=== PATIENT | female | born 1965 | race Caucasian/White ===

== ENCOUNTER 2017-12-11 00:03 | Emergency (ER) | payer OTHER ==
[2017-12-11 00:29] VITALS: BP 139/84; PULSE 60; TEMP 98.1; BMI 36.8
--- NOTE | 2017-12-11 01:16 | PDOC ---
History of Present Illness - General Chief Complaint: Pain Stated Complaint: STOMACH PAIN Time Seen by Provider: 12/11/17 00:42 Past History - Past Medical History Allergies/Adverse Reactions: Allergies Allergy/AdvReac Type Severity Reaction Status Date / Time No Known Allergies Allergy Verified 12/11/17 00:30 COPD: No HTN: Yes Thyroid Disease: Yes - Suicide/Smoking/Psychosocial Hx Smoking History: Never smoked *Physical Exam - Vital Signs Last Vital Signs Temp Pulse Resp BP Pulse Ox 98.1 F 60 18 139/84 99 12/11/17 00:23 12/11/17 00:23 12/11/17 00:23 12/11/17 00:23 12/11/17 00:23 *DC/Admit/Observation/Transfer - Referrals Referrals: Gita Hankins MD [Primary Care Provider] - - Patient Instructions - Post Discharge Activity
--- NOTE | 2017-12-11 01:21 | PDOC ---
History of Present Illness - General Chief Complaint: Pain Stated Complaint: STOMACH PAIN Time Seen by Provider: 12/11/17 00:42 - History of Present Illness Initial Comments: 52 year old female with PMH of HTN, GERD, and HLD presenting with sudden onset diarrhea and stomach pain a few hours after eating pork and beans. States she had some pork, beans, and salad that she cooked herself and went to bed without issue. She woke up bout 4 hours later and had some crampy lower abdominal pain two episodes of diarrhea. Denies fevers, chills, nausea, vomiting, constipation , chest pain, headache, sob, or other symptoms. 12/11/17 04:49 Past History - Past Medical History Allergies/Adverse Reactions: Allergies Allergy/AdvReac Type Severity Reaction Status Date / Time No Known Allergies Allergy Verified 12/11/17 00:30 Home Medications: Ambulatory Orders Mag Hydrox/Al Hydrox/Simeth [Mylanta Suspension -] 30 ml PO Q6H PRN #1 bottle COPD: No HTN: Yes Thyroid Disease: Yes - Suicide/Smoking/Psychosocial Hx Smoking History: Never smoked Review of Systems - Review of Systems Constitutional: No: Chills, Diaphoresis, Fever, Loss of Appetite HEENTM: No: Blurred Vision, Tearing Respiratory: No: Cough, Orthopnea, Shortness of Breath Cardiac (ROS): No: Chest Pain, Edema, Irregular Heart Rate ABD/GI: Yes: Diarrhea. No: Nausea, Vomiting : No: Burning, Dysuria, Discharge Musculoskeletal: No: Back Pain, Joint Pain Integumentary: No: Lesions, Lumps, Pruritus Neurological: No: Headache, Numbness, Paresthesia Psychiatric: No: Anxiety, Depression Hematologic/Lymphatic: No: Anemia, Blood Clots, Easy Bleeding *Physical Exam - Vital Signs Last Vital Signs Temp Pulse Resp BP Pulse Ox 98.1 F 60 18 139/84 99 12/11/17 00:23 12/11/17 00:23 12/11/17 00:23 12/11/17 00:23 12/11/17 00:23 - Physical Exam General Appearance: Yes: Nourished, Appropriately Dressed. No: Apparent Distress HEENT: positive: EOMI, MURALI, Normal ENT Inspection, Normal Voice Neck: positive: Trachea midline, Normal Thyroid, Supple. negative: Tender, Rigid Respiratory/Chest: positive: Lungs Clear, Normal Breath Sounds. negative: Chest Tender, Respiratory Distress, Accessory Muscle Use Cardiovascular: positive: Regular Rhythm, Regular Rate Gastrointestinal/Abdominal: positive: Normal Bowel Sounds, Flat, Soft. negative : Tender Lymphatic: negative: Adenopathy, Tenderness Musculoskeletal: positive: Normal Inspection. negative: CVA Tenderness, Decreased Range of Motion Extremity: positive: Normal Capillary Refill, Normal Inspection, Normal Range of Motion. negative: Tender Integumentary: positive: Normal Color, Dry, Warm Neurologic: positive: Fully Oriented, Alert, Normal Mood/Affect, Normal Response , Motor Strength 10/13 ED Treatment Course - LABORATORY CBC & Chemistry Diagram: 12/11/17 01:53 12/11/17 01:53 Medical Decision Making - Medical Decision Making 52 year old with crampy lower abdominal pain and diarrhea after eating pork and salad. Unclear cause of her pain but it may have been food borne gastric irritation. Troponin was negative and her CK was slightly elevated to 698 which is consistent with her very poor fluid intake over the past couple of days. She feels improved after Pepcid and Maalox which corroborates gastric irritation 2/ 2 ingestion vs. GERD exacerbation. Will DC home with Maalox prescription and follow up instructions/ return precautions. 12/11/17 04:53 *DC/Admit/Observation/Transfer Diagnosis at time of Disposition: Abdominal pain Qualifiers: Abdominal location: left upper quadrant Qualified Code(s): R10.12 - Left upper quadrant pain - Discharge Dispostion Disposition: HOME Condition at time of disposition: Improved Decision to Admit order: No - Prescriptions Prescriptions: Mag Hydrox/Al Hydrox/Simeth [Mylanta Suspension -] 30 ml PO Q6H PRN #1 bottle PRN Reason: Nausea And/Or Vomiting - Referrals Referrals: Gita Hankins MD [Primary Care Provider] - - Patient Instructions Printed Discharge Instructions: DI for Abdominal Pain-Adult Additional Instructions: Solomon dolor abdominal probablemente se relacion con solomon reciente ingestin de cerdo y frijol. Por favor, asegrese de cocinar todas ashwini abhijeet a fondo. Por favor use Maalox y solomon medicacin anticida segn sea necesario para solomon dolor de estmago. Por favor, consulte a solomon mdico de atencin primaria cuando regrese. Por favor, regrese al Ed si tiene sntomas nuevos o que empeoran. Print Language: TURKMEN - Post Discharge Activity
--- NOTE | 2017-12-11 01:27 | PDOC ---
Attending Attestation - HPI HPI: 12/11/17 01:30 The patient is a 52 year old female, with a significant past medical history of GERD (omeprazole), hysterectomy, hypertension (taking losartan and Lasiks), hypothyroidism (synthroid), who presents to the emergency department with middle abdominal pain since about 11:30 PM. She states she ate fried pork and rice which she prepared at about 9PM. She states she developed the pain followed by chills and 2 episodes of loose stools. She denies blood in her stool. She states this feels unlike her GERD. She reports being seen for a routine visit on 12/[address] Calderon. The patient denies chest pain, shortness of breath, headache and dizziness. The patient denies fever, chills, nausea, vomit, diarrhea and constipation. The patient denies dysuria, frequency, urgency and hematuria. Allergies: NKDA Past surgical history: hysterectomy - Physicial Exam PE: 12/11/17 01:37 GENERAL: Well-appearing, well-nourished. No apparent distress. HEENT: Normocephalic, atraumatic. PERRL, EOM intact. CARDIOVASCULAR: Normal S1, S2. Regular rate and rhythm. PULMONARY: Clear to auscultation bilaterally. ABDOMEN: Soft, non-distended, non-tender. EXTREMITIES: Normal ROM in all four extremities. No gross deformities. SKIN: Warm, dry. No rash NEUROLOGICAL: No focal neurological deficits. - Medical Decision Making 12/11/17 01:38 Documentation prepared by Ksenia Johnson, acting as registered medical transcriptionist for Ara Vera MD <Ksenia Johnson - Last Filed: 12/11/17 01:34> - Resident Resident Name: Owen Maza - ED Attending Attestation I have performed the following: I have examined & evaluated the patient, The case was reviewed & discussed with the resident, I agree w/resident's findings & plan, Exceptions are as noted - HPI HPI: 12/11/17 01:27 52 YO FEMALE WHO DEV ABD PAIN ,DIARRHEA SEVERAL HOURS AFTER EATING PORK AN SALAD - Medical Decision Making 12/11/17 02:04 52 yo female w several hours of abd pain mid abd discomfort but no rebound plan cbc ,comp and reassess <Ara Vera - Last Filed: 12/11/17 02:06>
[2017-12-11] MEDS ORDERED: FAMOTIDINE 20 MG/50 ML IVPB 20 MG/50 ML MG IVPB ONE ×2 (01:28→01:44)
[2017-12-11] MEDS ORDERED: MAG HYDROX/AL HYDROX/SIMETH 30 ML UNIT-DOSE CUP PO ONE (01:28)
[2017-12-11] MEDS ORDERED: MAG HYDROX/AL HYDROX/SIMETH 30 ML UNIT-DOSE CUP ONE (01:44)
[2017-12-11 02:07] LABS: BASO % 0.4 % (0-2.0); EOS % 0.7 % (0-4.5); HEMATOCRIT 38.7 % (32.4-45.2); HEMOGLOBIN 12.9 GM/dL (10.7-15.3); LYMPH % 27.4 % (8-40); MCH 30.5 pg (25.7-33.7); MCHC 33.3 g/dl (32.0-36.0); MEAN CELL VOLUME 91.5 fl (80-96); MEAN PLT VOLUME 7.9 fl (7.5-11.1); MONO % 5.5 % (3.8-10.2); PLATELET COUNT 259 K/MM3 (134-434); RBC 4.23 M/mm3 (3.60-5.2); RDW 13.6 % (11.6-15.6); WHITE BLOOD COUNT 6.3 K/mm3 (4.0-10.0)
[2017-12-11 02:30] LABS: ALBUMIN 3.7 g/dl (3.4-5.0); AMYLASE 77 U/L (25-115); ANION GAP 8 (8-16); BILIRUBIN,TOTAL 0.3 mg/dL (0.2-1.0); BLOOD UREA NITROGEN 17 mg/dL (7-18); CALCIUM 8.8 mg/dL (8.5-10.1); CHLORIDE 107 mmol/L (98-107); CO2 27 mmol/L (21-32); CREATININE 1.1 mg/dL (0.55-1.02); GLUCOSE,RANDOM 103 mg/dL (74-106); LIPASE 123 U/L (73-393); POTASSIUM 3.7 mmol/L (3.5-5.1); SGOT/AST 41 U/L (15-37); SGPT/ALT 43 U/L (12-78); SODIUM 142 mmol/L (136-145); TOT PROT 7.8 g/dl (6.4-8.2)
[2017-12-11 02:32] LABS: ALK PHOS 118 U/L (45-117)
--- NOTE | 2017-12-11 12:57 | EKG ---
Test Reason : Blood Pressure : / mmHG Vent. Rate : 056 BPM Atrial Rate : 056 BPM P-R Int : 176 ms QRS Dur : 074 ms QT Int : 448 ms P-R-T Axes : 068 005 027 degrees QTc Int : 432 ms POOR DATA QUALITY, INTERPRETATION MAY BE ADVERSELY AFFECTED SINUS BRADYCARDIA OTHERWISE NORMAL ECG NO PREVIOUS ECGS AVAILABLE Confirmed by MD JOSH, VINNY ([id number]) on 12/11/2017 12:57:08 PM Referred By: Confirmed By:VINNY MORENO MD
== END 2017-12-11 03:35 | disposition home or self-care (01) ==
LOC: JER 00:03
PROC: 3E033GC Introduction of Other Therapeutic Substance into Peripheral Vein, Percutaneous Approach (ICD-10-PCS; principal; 2017-12-11)
DX: R10.9 Unspecified abdominal pain (principal); I10 Essential (primary) hypertension; E78.00 Pure hypercholesterolemia, unspecified; K21.9 Gastro-esophageal reflux disease without esophagitis
CPT/HCPCS: 36415; 80053; 82150; 82550; 82553; 83690; 84484; 85025; 93005; 93010; 96365; 99282-25

== ENCOUNTER 2018-03-24 19:10 | Emergency (ER) | payer OTHER ==
[2018-03-24 19:17] VITALS: BP 130/74; PULSE 60; TEMP 97.8; BMI 37.2
--- NOTE | 2018-03-24 20:28 | PDOC ---
History of Present Illness - General Chief Complaint: Pain Stated Complaint: RIGHT FOOT PAIN Time Seen by Provider: 03/24/18 20:04 History Source: Patient, Old Records Exam Limitations: No Limitations - History of Present Illness Initial Comments: 03/24/18 20:23 HISTORY OF PRESENT ILLNESS: This 52-year-old woman past medical history of hypertension, hyperlipidemia, pedal edema, hypothyroidism who presents emergency departments with right lower leg pain for the past 2 days. Patient states she was walking when she felt a cramping sensation in her lower leg which was relieved with rest. Patient states when she tried to walk again the pain came back is been having this intermittent pain for the since Sunday. Patient denies any chest pain, shortness of breath, fevers, chills, abdominal pain, nausea, vomiting. No recent travel or sick contacts. PAST MEDICAL HISTORY: see hpi SURGICAL HISTORY: Denies ALLERGIES: No known drug allergies REVIEW OF SYSTEMS General/Constitutional: Denies fever or chills. Denies weakness, weight change. HEENT: Denies change in vision. Denies ear pain or discharge. Denies sore throat. Cardiovascular: Denies chest pain or shortness of breath. Respiratory: Denies cough, wheezing, or hemoptysis. Gastrointestinal: Denies nausea, vomiting, diarrhea or constipation. Denies rectal bleeding. Genitourinary: Denies dysuria, frequency, or change in urination. Musculoskeletal: Right lower leg pain. Denies neck or back pain. Skin and breasts: Denies rash or easy bruising. Neurologic: Denies headache, vertigo, loss of consciousness, or loss of sensation. Psychiatric: Denies depression or anxiety. Endocrine: Denies increased thirst. Denies abnormal weight change. Hematologic/Lymphatic: Denies anemia, easy bleeding, or history of blood clots. Allergic/Immunologic: Denies hives or skin allergy. Denies latex allergy. PHYSICAL EXAM General Appearance: Well-appearing, appropriately dressed. No apparent distress , no intoxication. HEENT: EOMI, PERRLA, normal ENT inspection, normal voice, TMs normal, pharynx normal. No conjunctival pallor. No photophobia, scleral icterus. Neck: Supple. Trachea midline. No tenderness, rigidity, carotid bruit, stridor , lymphadenopathy, or thyromegaly. Respiratory/Chest: Lungs CTAB. No shortness of breath, chest tenderness, respiratory distress, accessory muscle use. No crackles, rales, rhonchi, stridor , wheezing, dullness Cardiovascular: RRR. S1, S2. No JVD, murmur, bradycardia, tachycardia. Vascular Pulses: Dorsalis-Pedis (R): 2+, Dorsalis-Pedis (L): 2+ Gastrointestinal/Abdominal: Normal bowel sounds. Abdomen soft, non-distended. No tenderness or rebound tenderness. No organomegaly, pulsatile mass, guarding, hernia, hepatomegaly, splenomegaly. Lymphatic: No adenopathy, tenderness. Musculoskeletal/Extremities: Normal inspection. FROM of all extremities, normal capillary refill. Pelvis Stable. No CVA tenderness. Bilateral lower extremity swelling with right greater than left. Right medial and lateral malleolus tender to palpation. Tibia tender to palpation. Integumentary: Appropriate color, dry, warm. No cyanosis, erythema, jaundice or rash Neurologic: senior solutions consultant II-XII intact. Fully oriented, alert. Appropriate mood/affect. Motor strength 5/5. No appreciable EOM palsy, facial droop or sensory deficit. Past History - Past Medical History Allergies/Adverse Reactions: Allergies Allergy/AdvReac Type Severity Reaction Status Date / Time No Known Allergies Allergy Verified 03/24/18 19:17 Home Medications: Ambulatory Orders Aspirin [ASA -] 81 mg PO DAILY 03/24/18 Levothyroxine [Synthroid -] 25 mcg PO DAILY 03/24/18 Loratadine [Claritin -] 10 mg PO DAILY 03/24/18 Losartan Potassium 100 mg PO DAILY 03/24/18 Omeprazole 40 mg PO DAILY 03/24/18 COPD: No GI Disorders: Yes (reflux) HTN: Yes Thyroid Disease: Yes - Suicide/Smoking/Psychosocial Hx Smoking History: Never smoked *Physical Exam - Vital Signs Last Vital Signs Temp Pulse Resp BP Pulse Ox 97.8 F 60 18 130/74 98 03/24/18 19:14 03/24/18 19:14 03/24/18 19:14 03/24/18 19:14 03/24/18 19:14 ED Treatment Course - RADIOLOGY Radiology Studies Ordered: Category Date Time Status DUPLEX VASCUL US-1 LEG [US] Stat Ultrasound 03/24/18 20:22 Ordered Medical Decision Making - Medical Decision Making 03/24/18 20:30 A/P: 52-year-old female with atraumatic right lower leg pain for 2 days Describes intermittent claudication since onset 2 days ago Calf tenderness noted Tibial tenderness with lateral and medial malleolus tenderness X-rays, ultrasound, Tylenol, reassess 03/24/18 22:32 X-rays as read by me: No acute fractures or dislocations noted. Duplex Doppler of the right lower extremity as read by imaging religious education teacher: No evidence of deep vein thrombosis in the visualized segments of the right lower extremity deep venous system. We'll discharge the patient home to follow-up with her primary doctor for continued evaluation of PAD. *DC/Admit/Observation/Transfer Diagnosis at time of Disposition: PAD (peripheral artery disease) - Discharge Dispostion Disposition: HOME Condition at time of disposition: Stable Decision to Admit order: No - Referrals Referrals: Gita Hankins MD [Primary Care Provider] - - Patient Instructions Additional Instructions: Make an appointment with her primary doctor for continued evaluation of leg pain. Return to emergency department for chest pain, shortness of breath, discoloration of your leg, no pulsating your foot, increase in pain or any other concerns. - Post Discharge Activity
== END 2018-03-24 22:38 | disposition home or self-care (01) ==
LOC: JERFT 19:10
DX: I73.9 Peripheral vascular disease, unspecified (principal); I10 Essential (primary) hypertension; E03.9 Hypothyroidism, unspecified; K21.9 Gastro-esophageal reflux disease without esophagitis
CPT/HCPCS: 73590-TC-RT-FY; 73610-TC-RT-FY; 73630-TC-RT-FY; 93971-TC; 99281-25

== ENCOUNTER 2020-09-10 13:10 | Emergency (ER) | payer OTHER ==
[2020-09-10 13:14] VITALS: BP 151/87; PULSE 85; TEMP 98.6; BMI 38.0
[2020-09-10 15:08] LABS: BASO % 1.4 % (0-2.0); EOS % 1.9 % (0-4.5); HEMOGLOBIN 14.2 GM/dL (10.7-15.3); LYMPH % 37.8 % (8-40); MCH 30.2 pg (25.7-33.7); MCHC 33.1 g/dl (32.0-36.0); MEAN CELL VOLUME 91.2 fl (80-96); MEAN PLT VOLUME 9.5 fl (7.5-11.1); MONO % 6.2 % (3.8-10.2); NEUT % 52.7 % (42.8-82.8); PLATELET COUNT 263 K/MM3 (134-434); RBC 4.71 M/mm3 (3.60-5.2); RDW 14.5 % (11.6-15.6); WHITE BLOOD COUNT 5.6 K/mm3 (4.0-10.0)
[2020-09-10 15:26] LABS: POTASSIUM 4.2 mmol/L (3.5-5.1)
[2020-09-10 15:29] LABS: BLOOD UREA NITROGEN 10.8 mg/dL (7-18); CALCIUM 9.9 mg/dL (8.5-10.1)
[2020-09-10 15:33] LABS: BILIRUBIN,TOTAL 0.3 mg/dL (0.2-1); CREATININE 0.8 mg/dL (0.55-1.3)
[2020-09-10 15:34] LABS: TOT PROT 8.4 g/dl (6.4-8.2)
[2020-09-10] MEDS ORDERED: KETOROLAC TROMETHAMINE 60 MG/2 ML VIAL IM ONE (16:00)
[2020-09-10] MEDS ORDERED: KETOROLAC TROMETHAMINE 60 MG/2 ML VIAL ONE (16:01)
== END 2020-09-10 16:06 | disposition home or self-care (01) ==
LOC: JERFT 13:10
PROC: 3E0233Z Introduction of Anti-inflammatory into Muscle, Percutaneous Approach (ICD-10-PCS; principal; 2020-09-10)
DX: L03.031 Cellulitis of right toe (principal); L02.611 Cutaneous abscess of right foot
CPT/HCPCS: 36415; 73630-TC-RT-FY; 76882-TC-RT-FY; 80053; 85025; 99285-25

== ENCOUNTER 2021-01-08 10:09 | Emergency (ER) | payer OTHER ==
[2021-01-08 10:24] VITALS: BP 131/72; PULSE 70; TEMP 98.5; BMI 41.1
== END 2021-01-08 11:37 | disposition home or self-care (01) ==
LOC: JERFT 10:09
DX: S99.912A Unspecified injury of left ankle, initial encounter (principal)
CPT/HCPCS: 99283-25

== ENCOUNTER 2021-12-10 16:38 | Emergency (ER) | payer OTHER ==
[2021-12-10 17:13] VITALS: BMI 37.8
[2021-12-10] MEDS ORDERED: SODIUM CHLORIDE 0.9% 500 ML INFUS.BAG IV ONE (17:54)
[2021-12-10] MEDS ORDERED: ONDANSETRON 4 MG/2 ML VIAL IVPUSH ONE (17:55)
[2021-12-10] MEDS ORDERED: KETOROLAC TROMETHAMINE 30 MG/1 ML VIAL IVPUSH ONE (17:55)
[2021-12-10] MEDS ORDERED: ONDANSETRON 4 MG/2 ML VIAL ONE (18:07)
[2021-12-10] MEDS ORDERED: KETOROLAC TROMETHAMINE 30 MG/1 ML VIAL ONE (18:07)
[2021-12-10 18:46] LABS: BASO % 0.3 % (0-2.0); EOS % 0.4 % (0-4.5); HEMATOCRIT 40.9 % (32.4-45.2); HEMOGLOBIN 13.6 GM/dL (10.7-15.3); LYMPH % 38.4 % (8-40); MCH 30.2 pg (25.7-33.7); MCHC 33.3 g/dl (32.0-36.0); MEAN CELL VOLUME 90.6 fl (80-96); MEAN PLT VOLUME 8.2 fl (7.5-11.1); MONO % 3.7 % (3.8-10.2); NEUT % 57.2 % (42.8-82.8); PLATELET COUNT 224 10^3/uL (134-434); RBC 4.52 M/mm3 (3.60-5.2); RDW 14.1 % (11.6-15.6); WHITE BLOOD COUNT 7.7 K/mm3 (4.0-10.0)
[2021-12-10 19:12] LABS: BLOOD UREA NITROGEN 19.2 mg/dL (7-18); CALCIUM 9.6 mg/dL (8.5-10.1)
[2021-12-10 19:13] LABS: ALBUMIN 4.3 g/dl (3.4-5.0)
[2021-12-10 19:16] LABS: CREATININE 1.1 mg/dL (0.55-1.3)
[2021-12-10 19:17] LABS: BILIRUBIN,TOTAL 0.3 mg/dL (0.2-1)
[2021-12-10 21:57] LABS: EPI CELLS 3 /uL (0-25.1); HYALINE CASTS 0 /uL (0-3.1); PH,URINE 7.5 (5.0-8.0); URINE APPEARANCE CLEAR; URINE BACTERIA 11 /uL (0-1359); URINE BILIRUBIN NEGATIVE (NEGATIVE); URINE COLOR YELLOW; URINE GLUCOSE (UA) NEGATIVE (NEGATIVE); URINE KETONE NEGATIVE (NEGATIVE); URINE LEUK ESTERASE NEGATIVE (NEGATIVE); URINE NITRITE NEGATIVE (NEGATIVE); URINE PROTEIN NEGATIVE (NEGATIVE); URINE RBC 75 /uL (0-23.9); URINE UROBILINOGEN 0.2 mg/dL (0.2-1.0); URINE WBC 2 /uL (0-25.8)
[2021-12-11] MEDS ORDERED: TAMSULOSIN HCL 0.4 MG CAP PO ONE (02:22)
[2021-12-11] MEDS ORDERED: TAMSULOSIN HCL 0.4 MG CAP ONE (02:41)
[2021-12-11 02:59] VITALS: BP 157/89; PULSE 63; TEMP 98.6
== END 2021-12-11 02:59 | disposition home or self-care (01) ==
LOC: JER 16:38
PROC: 3E0333Z Introduction of Anti-inflammatory into Peripheral Vein, Percutaneous Approach (ICD-10-PCS; principal; 2021-12-10)
PROC: 3E033GC Introduction of Other Therapeutic Substance into Peripheral Vein, Percutaneous Approach (ICD-10-PCS; 2021-12-10)
DX: N21.0 Calculus in bladder (principal); R10.9 Unspecified abdominal pain
CPT/HCPCS: 36415; 74177-TC; 80053; 81003; 85025; 87086; 99285-25; Q9967

== ENCOUNTER 2022-01-19 04:05 | Day surgery (SDC) | payer OTHER ==
[2022-01-16 14:21] VITALS: BMI 40.9
[2022-01-19] MEDS ORDERED: KETAMINE HCL 200 MG/20 ML VIAL ONE (07:13)
[2022-01-19] MEDS ORDERED: SUCCINYLCHOLINE CHLORIDE 200 MG/10 ML SYRINGE ONE (07:14)
[2022-01-19 09:35] VITALS: BP 147/85; PULSE 67; RESP 14; TEMP 98
== END 2022-01-19 09:35 | disposition home or self-care (01) ==
LOC: JASU-ENDO 04:05
PROVIDERS: ATTEND Internal Medicine Gastroenterology
PROC: 0DB78ZX Excision of Stomach, Pylorus, Via Natural or Artificial Opening Endoscopic, Diagnostic (ICD-10-PCS; 2022-01-19)
PROC: 0DB68ZX Excision of Stomach, Via Natural or Artificial Opening Endoscopic, Diagnostic (ICD-10-PCS; 2022-01-19)
PROC: 0DB28ZX Excision of Middle Esophagus, Via Natural or Artificial Opening Endoscopic, Diagnostic (ICD-10-PCS; 2022-01-19)
PROC: 0DB38ZX Excision of Lower Esophagus, Via Natural or Artificial Opening Endoscopic, Diagnostic (ICD-10-PCS; principal; 2022-01-19 08:00)
DX: K29.50 Unspecified chronic gastritis without bleeding (principal); K25.9 Gastric ulcer, unspecified as acute or chronic, without hemorrhage or perforation
CPT/HCPCS: 88305-TC; 88342-TC

== ENCOUNTER 2022-05-25 04:13 | Day surgery (SDC) | payer OTHER ==
[2022-05-22 13:52] VITALS: BMI 38.4
[2022-05-25 10:25] VITALS: BP 134/77; PULSE 57; RESP 21
[2022-05-25 11:33] VITALS: TEMP 98
== END 2022-05-25 10:50 | disposition home or self-care (01) ==
LOC: JASU-ENDO 04:13
PROVIDERS: ATTEND Internal Medicine Gastroenterology
PROC: 0DB78ZX Excision of Stomach, Pylorus, Via Natural or Artificial Opening Endoscopic, Diagnostic (ICD-10-PCS; 2022-05-25)
PROC: 0DB68ZX Excision of Stomach, Via Natural or Artificial Opening Endoscopic, Diagnostic (ICD-10-PCS; principal; 2022-05-25 08:00)
DX: K25.9 Gastric ulcer, unspecified as acute or chronic, without hemorrhage or perforation (principal); K29.50 Unspecified chronic gastritis without bleeding
CPT/HCPCS: 88305-TC; 88342-TC

== ENCOUNTER 2023-04-05 05:00 | Day surgery (SDC) | payer OTHER ==
[2023-04-02 13:07] VITALS: BMI 36.6
[2023-04-05 09:40] VITALS: TEMP 97.5
[2023-04-05 10:18] VITALS: BP 120/72; PULSE 70; RESP 15
== END 2023-04-05 10:25 | disposition home or self-care (01) ==
LOC: JASU-ENDO 05:00
PROVIDERS: ATTEND Internal Medicine Gastroenterology
PROC: 0DBL8ZX Excision of Transverse Colon, Via Natural or Artificial Opening Endoscopic, Diagnostic (ICD-10-PCS; 2023-04-05)
PROC: 0DBH8ZX Excision of Cecum, Via Natural or Artificial Opening Endoscopic, Diagnostic (ICD-10-PCS; principal; 2023-04-05 08:30)
DX: Z12.11 Encounter for screening for malignant neoplasm of colon (principal); D12.3 Benign neoplasm of transverse colon; K63.5 Polyp of colon; D17.5 Benign lipomatous neoplasm of intra-abdominal organs; K64.8 Other hemorrhoids; I10 Essential (primary) hypertension
CPT/HCPCS: 88305-TC

== ENCOUNTER 2024-01-24 20:19 | Observation (INO) | payer OTHER ==
[2024-01-24] MEDS ORDERED: ACETAMINOPHEN INJECTION 100 ML IVPB ONE (21:49)
[2024-01-24] MEDS ORDERED: ONDANSETRON 4 MG/2 ML VIAL ONE (21:49)
[2024-01-24 21:54] LABS: BASO % 0.3 % (0-2.0); EOS % 0.3 % (0-4.5); HEMATOCRIT 39.7 % (32.4-45.2); HEMOGLOBIN 13.3 GM/dL (10.7-15.3); LYMPH % 26.2 % (8-40); MCHC 33.6 g/dl (32.0-36.0); MEAN CELL VOLUME 89.5 fl (80-96); MEAN PLT VOLUME 8.5 fl (7.5-11.1); MONO % 3.8 % (3.8-10.2); NEUT % 69.4 % (42.8-82.8); PLATELET COUNT 191 10^3/uL (134-434); RBC 4.44 M/mm3 (3.60-5.2); RDW 14.7 % (11.6-15.6); WHITE BLOOD COUNT 8.3 K/mm3 (4.0-10.0)
[2024-01-24] MEDS: ACETAMINOPHEN 1000 MG/100 ML BAG IVPB ONE (21:55)
[2024-01-24] MEDS: ONDANSETRON 4 MG/2 ML VIAL IVPUSH ONE (21:55)
[2024-01-24 22:02] LABS: INR 1.1 (0.83-1.09); PROTHROMBIN TIME (PATIENT) 12.6 SEC (9.7-13.0)
[2024-01-24 22:05] LABS: ACTIVATED PTT 28.9 SECONDS (25.2-36.5)
[2024-01-24 22:19] LABS: POTASSIUM 3.8 mmol/L (3.5-5.1)
[2024-01-24 22:24] LABS: ALBUMIN 4.4 g/dl (3.4-5.0); BLOOD UREA NITROGEN 17.3 mg/dL (7-18); CALCIUM 10.4 mg/dL (8.5-10.1)
[2024-01-24 22:29] LABS: BILIRUBIN,TOTAL 0.6 mg/dL (0.2-1); TOT PROT 7.8 g/dl (6.4-8.2)
[2024-01-25] MEDS ORDERED: ACETAMINOPHEN INJECTION 100 ML IVPB ONE (02:24)
[2024-01-25] MEDS: LACTATED RINGERS SOLUTION 1,000 ML/1,000 ML INFUS.BAG IV SCH (02:29)
[2024-01-25] MEDS: ACETAMINOPHEN 1000 MG/100 ML BAG IVPB ONE (02:30)
[2024-01-25] MEDS ORDERED: ACETAMINOPHEN 1000 MG/100 ML BAG IVPB PRN (05:24)
[2024-01-25 06:36] LABS: BASO % 0.2 % (0-2.0); HEMATOCRIT 36.7 % (32.4-45.2); HEMOGLOBIN 12.3 GM/dL (10.7-15.3); LYMPH % 10.7 % (8-40); MCH 30.4 pg (25.7-33.7); MCHC 33.6 g/dl (32.0-36.0); MEAN CELL VOLUME 90.3 fl (80-96); MEAN PLT VOLUME 8.7 fl (7.5-11.1); MONO % 4.5 % (3.8-10.2); NEUT % 84.6 % (42.8-82.8); PLATELET COUNT 156 10^3/uL (134-434); RBC 4.06 M/mm3 (3.60-5.2); WHITE BLOOD COUNT 8.5 K/mm3 (4.0-10.0)
[2024-01-25 06:54] LABS: POTASSIUM 4.5 mmol/L (3.5-5.1)
[2024-01-25 06:56] LABS: CALCIUM 9.2 mg/dL (8.5-10.1)
[2024-01-25 06:57] LABS: ALBUMIN 3.5 g/dl (3.4-5.0); BLOOD UREA NITROGEN 12.8 mg/dL (7-18); MAGNESIUM 2.1 mg/dL (1.8-2.4)
[2024-01-25 06:59] LABS: PHOSPHOROUS 3.7 mg/dL (2.5-4.9)
[2024-01-25 07:00] LABS: CREATININE 0.7 mg/dL (0.55-1.3)
[2024-01-25 07:02] LABS: BILIRUBIN,TOTAL 0.6 mg/dL (0.2-1); TOT PROT 6.4 g/dl (6.4-8.2)
[2024-01-25] MEDS: LEVOTHYROXINE NA 25 MCG TABLET (FP) PO SCH (07:55)
[2024-01-25] MEDS ORDERED: LEVOTHYROXINE NA 25 MCG TABLET (FP) ONE (07:57)
[2024-01-25] MEDS ORDERED: PATIENT'S OWN MEDICATION (NON-FORMULARY) (Losartan Potassium [Losartan Potassium] 100 MG T PO SCH (10:00)
[2024-01-25] MEDS ORDERED: ATORVASTATIN CA 20 MG TABLET (FP) PO SCH (10:00)
[2024-01-25 13:09] VITALS: BMI 28.3
[2024-01-25] MEDS: PANTOPRAZOLE SODIUM 40 MG VIAL IVPUSH SCH (22:29)
[2024-01-26 16:18] VITALS: BP 119/63; PULSE 63; RESP 19; TEMP 98.8
== END 2024-01-26 16:53 | disposition home or self-care (01) ==
LOC: JER 20:19 → INTOOBSV 01-25 02:16 → JERBED 01-25 02:16 → UNDOADMOB 01-25 02:16 → JERBED 01-25 11:22 → INTOOBSV 01-25 11:22 → OBSVTOIN 01-25 11:22 → J8W 01-25 12:09
PROVIDERS: ADMIT Internal Medicine; ATTEND Registered Nurse
PROC: 3E0337Z Introduction of Electrolytic and Water Balance Substance into Peripheral Vein, Percutaneous Approach (ICD-10-PCS; 2024-01-25)
PROC: 3E033GC Introduction of Other Therapeutic Substance into Peripheral Vein, Percutaneous Approach (ICD-10-PCS; 2024-01-25)
PROC: 0DJ08ZZ Inspection of Upper Intestinal Tract, Via Natural or Artificial Opening Endoscopic (ICD-10-PCS; 2024-01-25)
PROC: 3E033NZ Introduction of Analgesics, Hypnotics, Sedatives into Peripheral Vein, Percutaneous Approach (ICD-10-PCS; principal; 2024-01-25 13:00)
DX: T28.6XXA Corrosion of esophagus, initial encounter (principal); T49.0X1A Poisoning by local antifungal, anti-infective and anti-inflammatory drugs, accidental (unintentional), initial encounter; K22.0 Achalasia of cardia; I10 Essential (primary) hypertension; X58.XXXA Exposure to other specified factors, initial encounter; Y93.89 Activity, other specified; Y92.008 Other place in unspecified non-institutional (private) residence as the place of occurrence of the external cause; E03.9 Hypothyroidism, unspecified; E78.5 Hyperlipidemia, unspecified
CPT/HCPCS: 0241U-QW; 36415; 80053; 83735; 84100; 84484; 85025; 85610; 85730; 86850; 86900; 86901; 93005; 93010; 96361; 96374; 96375; 96376; 99285-25; G0378; J0131